=== PATIENT | female | born 1950 | race Caucasian/White ===

== ENCOUNTER 2020-07-08 06:20 | Day surgery (SDC) | payer OTHER, SELFPAY ==
[~2020-07-08] VITALS: Ht 170.2 cm; Wt 70.3 kg
[2020-07-08] MEDS ORDERED: SIMETHICONE 40 MG/0.6 ML ML ONE (07:18)
[2020-07-08] MEDS ORDERED: fentaNYL CITRATE/PF 100 MCG/2 ML AMP ONE (07:18)
[2020-07-08] MEDS ORDERED: MIDAZOLAM HCL 5 MG/5 ML VIAL ONE (07:19)
[2020-07-08 11:35] VITALS: BP_SYST 128
== END 2020-07-08 23:32 | disposition home or self-care (01) ==
LOC: SDS 06:20 → SMU 06:20 → SDS 23:32
PROVIDERS: ATTEND Internal Medicine
DX: R63.4 Abnormal weight loss (principal); R19.5 Other fecal abnormalities; Z86.010 Personal history of colon polyps; K64.8 Other hemorrhoids; K57.30 Diverticulosis of large intestine without perforation or abscess without bleeding; K29.50 Unspecified chronic gastritis without bleeding; I10 Essential (primary) hypertension; E78.5 Hyperlipidemia, unspecified; I25.10 Atherosclerotic heart disease of native coronary artery without angina pectoris; Z86.73 Personal history of transient ischemic attack (TIA), and cerebral infarction without residual deficits; Z85.3 Personal history of malignant neoplasm of breast; Z88.0 Allergy status to penicillin; Z79.899 Other long term (current) drug therapy; Z20.822 Contact with and (suspected) exposure to COVID-19
CPT/HCPCS: 36415; 43239; 45378; 87081; 88305; 88312; 88313; 96365; 99152; G0378; J2250; J3010; J7030; U0003